=== PATIENT | male | born 1995 | race Caucasian/White ===

== ENCOUNTER → 2016-08-02 | Day surgery (SDC) | payer OTHER ==
[~2016-08-02] VITALS: Ht 188 cm; Wt 85.5 kg
[~2016-08-02] MED LIST: LIDOCAINE HCL 2% 2 ML VIAL (20MG/ML) ONE; PROPOFOL IV EMULSION 10 MG/ML 20 ML VIAL IV ONE; RANI150T3 PO; SODIUM CHLORIDE 0.9% 500ML 500 ML IV ONE
[2016-08-02 15:18] VITALS: Ht 188 cm; Wt 85.5 kg
--- NOTE | 2016-08-02 15:59 | Endo History and Physical ---
History & Physical Date of Service: Aug 02, 2016. Chief Complaint: GERD WITHOUT ESOPHAGITIS Referring Physician: DR. DELANEY MARTINEZ D.O. History of Present Illness 21 yo male who presents for EGD secondary to GERD. Past Surgical History Hx Cardiac Surgery: No Hx Internal Defibrillator: No Hx Pacemaker: No Hx Abdominal Surgery: No Hx of Implantable Prosthesis: No Hx Post-Op Nausea and Vomiting: No Hx Cancer Surgery: No Hx Thoracic Surgery: No Hx Orthopedic: No Hx Urinary Tract Surgery: No Family History None Social History Smoking Status: Never Smoker Hx Substance Use: No Hx Alcohol Use: Yes (ONCE A WEEK) Allergies Coded Allergies: No Known Allergies (Verified , 08/02/16) Current Medications Reported Home Medications Medications Dose Route/Sig Max Daily Dose Days Date Category Zantac (Ranitidine HCl) 150 Mg Tab 1 Tab PO BID 90 08/02/16 Reported Vital Signs Weight (Kilograms): 85.5 Height (Feet): 6 Height (Inches): 2 Date Time Temp Pulse Resp B/P Pulse Ox O2 Delivery O2 Flow Rate FiO2 08/02/16 15:34 36.7 66 24 159/71 98 Room Air Physical Exam General Appearance: WD/WN, no apparent distress Respiratory/Chest: Auscultation: breath sounds normal Cardiovascular: Heart Auscultation: RRR Abdomen: Bowel Sounds: normal Inspection & Palpation: soft, non-distended, no tenderness, guarding & rebound Assessment and Plan Assessment: 21 yo male who presents for EGD secondary to GERD. Plan: Proceed with EGD.
--- NOTE | 2016-08-02 16:19 | GI REPORT ---
Procedure Date: 08/02/2016 3:40 PM Procedure: Upper GI endoscopy Indications: Gastro-esophageal reflux disease Medicines: Monitored Anesthesia Care Complications: No immediate complications. Estimated Blood Loss: Estimated blood loss: none. Procedure: Pre-Anesthesia Assessment: - Prior to the procedure, a History and Physical was performed, and patient medications and allergies were reviewed. The patient's tolerance of previous anesthesia was also reviewed. The risks and benefits of the procedure and the sedation options and risks were discussed with the patient. All questions were answered, and informed consent was obtained. Prior Anticoagulants: The patient has taken no previous anticoagulant or antiplatelet agents. ASA Grade Assessment: II - A patient with mild systemic disease. After reviewing the risks and benefits, the patient was deemed in satisfactory condition to undergo the procedure. After obtaining informed consent, the endoscope was passed under direct vision. Throughout the procedure, the patient's blood pressure, pulse, and oxygen saturations were monitored continuously. The scope was introduced through the mouth, and advanced to the second part of duodenum. The upper GI endoscopy was accomplished without difficulty. The patient tolerated the procedure well. Findings: Mucosal changes including ringed esophagus and longitudinal furrows were found in the entire esophagus. Biopsies were taken with a cold forceps for histology. The entire examined stomach was normal. Biopsies were taken with a cold forceps for Helicobacter pylori testing. The examined duodenum was normal. Impression: - Esophageal mucosal changes suspicious for eosinophilic esophagitis. Biopsied. - Normal stomach. Biopsied. - Normal examined duodenum. Recommendation: - Resume previous diet. - Continue present medications. - Await pathology results. - Return to primary care physician today. Pierre Jerry, 08/02/2016 4:19:38 PM This report has been signed electronically. Note Initiated On: 08/02/2016 3:40 PM
--- NOTE | 2016-08-02 16:20 | Discharge Instructions ---
Endoscopy Patient Instructions Date / Procedure(s) Performed Aug 02, 2016. EGD Allergy Information Coded Allergies: No Known Allergies (Verified , 08/02/16) Discharge Date / Findings Aug 02, 2016. Gastric antrum biopsies Midesophageal biopsies Medication Instructions OK to resume all medications today as prescribed Reported Home Medications Medications Dose Route/Sig Max Daily Dose Days Date Category Zantac (Ranitidine HCl) 150 Mg Tab 1 Tab PO BID 90 08/02/16 Reported Provider Instructions Activity Restrictions - No exercising or heavy lifting for 24 hours. - Do not drink alcohol the day of the procedure. - Do not drive a car or operate machinery until the day after the procedure. - Do not make any important decisions or sign important papers in 24 hours after the procedure. Following Day: - Return to full activity which may include returning to work/school. Diet Start your diet with liquids and light foods (jello, soup, juice, toast). Then eat your usual diet if not nauseated. Treatment For Common After Affects For mild abdominal pain, bloating, or excessive gas: - Rest - Eat lightly - Lie on right side Follow-Up Information Follow-up with DR. PIERRE MARTINEZ D.O. as scheduled Anesthesia Information What You Should Know You have had a procedure that required some medicine to reduce anxiety and discomfort. This treatment is called moderate sedation. After receiving the treatment, you may be sleepy, but you will be able to breathe on your own. The effects of the treatment may last for several hours. Follow these instructions along with Activity/Diet recommendations noted above: * Do NOT do anything where dizziness or clumsiness would be dangerous. * Rest quietly at home today, then you can be up and about tomorrow. * Have a responsible person stay with you the rest of today. * You may have had an I.V. today. If so, you may take the dressing off later today. Recommendations Call your doctor if: * Trouble breathing * Continuous vomiting for more than 24 hours * Temperature above 101 degrees * Severe abdominal pain or bloating * Pain not relieved by pain medicine ordered * There is increased drainage or redness from any incision * A large amount of rectal bleeding greater than 2-3 tablespoons. (If you had a polyp/s removed or have hemorrhoids, a small amount of blood - from the rectum is to be expected.) * You have any unanswered questions or concerns. IN THE EVENT OF A SERIOUS EMERGENCY, GO TO THE NEAREST EMERGENCY ROOM Your discharge instructions were prepared by provider Pierre Martinez. Patient Instructions Signature Page Anjali Lassiter Patient (or Guardian) Signature/Date: I have read and understand the instructions given to me by my caregivers. Caregiver/RN/Doctor Signature/Date: The above-named patient and/or guardian has received patient instructions on this date. + Original Patient Signature Page (only) stays with chart. Please make copy for patient.
--- NOTE | 2016-08-02 16:33 | Anesthesiology Progress Note ---
Anesthesia Post Op Note Date & Time Aug 02, 2016 at 16:32 Vital Signs Pain Intensity: 1 Vital Signs Past 12 Hours Date Time Temp Pulse Resp B/P Pulse Ox O2 Delivery O2 Flow Rate FiO2 08/02/16 15:34 36.7 66 24 159/71 98 Room Air Notes Mental Status: alert / awake / arousable, participated in evaluation Pt Amnestic to Procedure: Yes Nausea / Vomiting: adequately controlled Pain: adequately controlled Airway Patency, RR, SpO2: stable & adequate BP & HR: stable & adequate Hydration State: stable & adequate Anesthetic Complications: no major complications apparent
[2016-08-02 16:40] VITALS: BP 119/70; PULSE 72; O2SAT 99
== END | disposition home or self-care (01) ==
LOC: C.GI 15:00
PROVIDERS: ATTEND Internal Medicine
DX: K21.9 Gastro-esophageal reflux disease without esophagitis (principal); K29.70 Gastritis, unspecified, without bleeding; K20.0 Eosinophilic esophagitis

== ENCOUNTER → 2017-04-12 | Day surgery (SDC) | payer OTHER ==
[2017-04-09 08:12] VITALS: Ht 188 cm; Wt 89.5 kg
[~2017-04-12] VITALS: Ht 188 cm; Wt 89.5 kg
[~2017-04-12] MED LIST changes: +FENTANYL CITRATE INJ 50 MCG/1 ML 2 ML VIAL IV ONE; +FENTANYL CITRATE INJ 50 MCG/1 ML 2 ML VIAL ONE; -LIDOCAINE HCL 2% 2 ML VIAL (20MG/ML) ONE; +MIDAZOLAM HCL 5 MG/ML 1 ML VIAL IV PRN; +MIDAZOLAM HCL 5 MG/ML 1 ML VIAL ONE; +PANT40TA PO; -PROPOFOL IV EMULSION 10 MG/ML 20 ML VIAL IV ONE; -RANI150T3 PO
--- NOTE | 2017-04-12 15:14 | Endo History and Physical ---
History & Physical Date of Service: Apr 12, 2017. Chief Complaint: eosinophilic esophagitis Referring Physician: [facility] History of Present Illness 21 yo male who presents for EGD secondary to Eosinophilic esophagitis. Past Surgical History Hx Cardiac Surgery: No Hx Internal Defibrillator: No Hx Pacemaker: No Hx Abdominal Surgery: No Hx of Implantable Prosthesis: No Hx Post-Op Nausea and Vomiting: No Hx Cancer Surgery: No Hx Thoracic Surgery: No Hx Orthopedic: No Hx Urinary Tract Surgery: No Family History None Social History Smoking Status: Never Smoker Hx Substance Use: Yes (MARIJUANA OCCASIONALLY) Hx Alcohol Use: Yes (OCCASIONALLY) Allergies Coded Allergies: NO KNOWN DRUG ALLERGIES (Verified Allergy, Unknown, ., 04/09/17) Uncoded Allergies: CHLOROX WIPES (Allergy, Unknown, WARM HANDS INTERNALLY, 04/09/17) Current Medications Reported Home Medications Medications Dose Route/Sig Max Daily Dose Days Date Category Protonix (Pantoprazole Sodium) 40 Mg Tab 40 Mg PO QAM 04/09/17 Reported Vital Signs Weight (Kilograms): 89.55 Height (Feet): 6 Height (Inches): 2 Date Time Temp Pulse Resp B/P (MAP) Pulse Ox O2 Delivery O2 Flow Rate FiO2 04/12/17 14:46 36.4 64 16 124/55 (78) 97 Room Air Physical Exam General Appearance: WD/WN, no apparent distress Respiratory/Chest: Auscultation: breath sounds normal Cardiovascular: Heart Auscultation: RRR Abdomen: Bowel Sounds: normal Inspection & Palpation: soft, non-distended, no tenderness, guarding & rebound Assessment and Plan Assessment: 21 yo male who presents for EGD secondary to Eosinophilic esophagitis. Plan: Proceed with EGD
--- NOTE | 2017-04-12 15:55 | GI REPORT ---
Procedure Date: 04/12/2017 3:39 PM Procedure: Upper GI endoscopy Indications: Follow-up of eosinophilic esophagitis Medicines: Fentanyl 100 micrograms IV, Midazolam 6 mg IV Complications: No immediate complications. Estimated Blood Loss: Estimated blood loss: none. Procedure: Pre-Anesthesia Assessment: - Prior to the procedure, a History and Physical was performed, and patient medications and allergies were reviewed. The patient's tolerance of previous anesthesia was also reviewed. The risks and benefits of the procedure and the sedation options and risks were discussed with the patient. All questions were answered, and informed consent was obtained. Prior Anticoagulants: The patient has taken no previous anticoagulant or antiplatelet agents. ASA Grade Assessment: II - A patient with mild systemic disease. After reviewing the risks and benefits, the patient was deemed in satisfactory condition to undergo the procedure. After obtaining informed consent, the endoscope was passed under direct vision. Throughout the procedure, the patient's blood pressure, pulse, and oxygen saturations were monitored continuously. The scope was introduced through the mouth, and advanced to the second part of duodenum. The upper GI endoscopy was accomplished without difficulty. The patient tolerated the procedure well. Findings: Mucosal changes were found in the entire esophagus. Biopsies were taken with a cold forceps for histology. A small hiatus hernia was present. The examined duodenum was normal. Impression: - Esophageal mucosal changes suspicious for eosinophilic esophagitis. Biopsied. - Small hiatus hernia. - Normal examined duodenum. Recommendation: - Resume previous diet. - Continue present medications. - Await pathology results. - Return to primary care physician as previously scheduled. Pierre Jerry, 04/12/2017 3:55:08 PM This report has been signed electronically. Note Initiated On: 04/12/2017 3:39 PM I attest to the content of the Intraoperative Record and orders documented therein, exceptions below
--- NOTE | 2017-04-12 15:58 | Discharge Instructions ---
Endoscopy Patient Instructions Date / Procedure(s) Performed Apr 12, 2017. EGD Allergy Information Coded Allergies: NO KNOWN DRUG ALLERGIES (Verified Allergy, Unknown, ., 04/09/17) Uncoded Allergies: CHLOROX WIPES (Allergy, Unknown, WARM HANDS INTERNALLY, 04/09/17) Discharge Date / Findings Apr 12, 2017. Hiatal hernia Mid-esophageal biopsies Medication Instructions OK to resume all medications today as prescribed Reported Home Medications Medications Dose Route/Sig Max Daily Dose Days Date Category Protonix (Pantoprazole Sodium) 40 Mg Tab 40 Mg PO QAM 04/09/17 Reported Provider Instructions Activity Restrictions - No exercising or heavy lifting for 24 hours. - Do not drink alcohol the day of the procedure. - Do not drive a car or operate machinery until the day after the procedure. - Do not make any important decisions or sign important papers in 24 hours after the procedure. Following Day: - Return to full activity which may include returning to work/school. Diet Start your diet with liquids and light foods (jello, soup, juice, toast). Then eat your usual diet if not nauseated. Treatment For Common After Affects For mild abdominal pain, bloating, or excessive gas: - Rest - Eat lightly - Lie on right side Follow-Up Information Follow-up with [facility] as scheduled Anesthesia Information What You Should Know You have had a procedure that required some medicine to reduce anxiety and discomfort. This treatment is called moderate sedation. After receiving the treatment, you may be sleepy, but you will be able to breathe on your own. The effects of the treatment may last for several hours. Follow these instructions along with Activity/Diet recommendations noted above: * Do NOT do anything where dizziness or clumsiness would be dangerous. * Rest quietly at home today, then you can be up and about tomorrow. * Have a responsible person stay with you the rest of today. * You may have had an I.V. today. If so, you may take the dressing off later today. Recommendations Call your doctor if: * Trouble breathing * Continuous vomiting for more than 24 hours * Temperature above 101 degrees * Severe abdominal pain or bloating * Pain not relieved by pain medicine ordered * There is increased drainage or redness from any incision * A large amount of rectal bleeding greater than 2-3 tablespoons. (If you had a polyp/s removed or have hemorrhoids, a small amount of blood - from the rectum is to be expected.) * You have any unanswered questions or concerns. IN THE EVENT OF A SERIOUS EMERGENCY, GO TO THE NEAREST EMERGENCY ROOM Your discharge instructions were prepared by provider Pierre Jerry. Patient Instructions Signature Page Anjali Lassiter Patient (or Guardian) Signature/Date: I have read and understand the instructions given to me by my caregivers. Caregiver/RN/Doctor Signature/Date: The above-named patient and/or guardian has received patient instructions on this date. + Original Patient Signature Page (only) stays with chart. Please make copy for patient.
[2017-04-12 16:26] VITALS: BP 144/77; PULSE 61; O2SAT 100
== END | disposition home or self-care (01) ==
LOC: C.GI 14:29
PROVIDERS: ATTEND Internal Medicine
DX: K20.0 Eosinophilic esophagitis (principal); K44.9 Diaphragmatic hernia without obstruction or gangrene